=== PATIENT | male | born 1950 | race Caucasian/White ===

== ENCOUNTER 2016-11-01 07:24 | Day surgery (SDC) | payer OTHER ==
[~2016-11-01] VITALS: Ht 170.2 cm; Wt 81.6 kg
[~2016-11-01 07:24] MED LIST: ASPIR 8181 M1 PO; FLONASE16 G1 BOTH NARES; Halfprin PO; LOW DOSE ASPIRI81 M2 PO; METRO CREAM 0.745 GM TP; MOBIC15 MG PO; MOBIC7.5 MG PO; MOTRIN800 MG PO; PHENERGAN-CODE120 ML PO; PRAVACHOL20 MG PO; PREDNISONE50 MG PO; PROTONIX40 MG PO
== END 2016-11-01 09:30 | disposition home or self-care (01) ==
LOC: PAIN 07:24 → SDC 08:15 → PAIN 09:30
DX: M47.896 Other spondylosis, lumbar region (principal); M54.16 Radiculopathy, lumbar region; M46.1 Sacroiliitis, not elsewhere classified; F41.1 Generalized anxiety disorder; M51.26 Other intervertebral disc displacement, lumbar region; K21.9 Gastro-esophageal reflux disease without esophagitis
CPT/HCPCS: J1030; J2250; J3010; S0020

== ENCOUNTER 2016-11-08 09:05 | Day surgery (SDC) | payer OTHER ==
[~2016-11-08] VITALS: Ht 170.2 cm; Wt 81.8 kg
== END 2016-11-08 11:45 | disposition home or self-care (01) ==
LOC: PAIN 09:05 → SDC 09:45 → PAIN 09:45
DX: M47.896 Other spondylosis, lumbar region (principal); M54.16 Radiculopathy, lumbar region; M46.1 Sacroiliitis, not elsewhere classified; F41.1 Generalized anxiety disorder; M51.26 Other intervertebral disc displacement, lumbar region; K21.9 Gastro-esophageal reflux disease without esophagitis; E78.5 Hyperlipidemia, unspecified; R03.0 Elevated blood-pressure reading, without diagnosis of hypertension
CPT/HCPCS: J1030; J2250; J3010; S0020

== ENCOUNTER 2017-01-30 06:51 | Day surgery (SDC) | payer OTHER ==
[~2017-01-30] VITALS: Ht 170.2 cm; Wt 79.4 kg
== END 2017-01-30 08:47 | disposition home or self-care (01) ==
LOC: PAIN 06:51 → SDC 07:30 → PAIN 08:47
PROC: 015B3ZZ Destruction of Lumbar Nerve, Percutaneous Approach (ICD-10-PCS; principal; 2017-01-30)
DX: M47.816 Spondylosis without myelopathy or radiculopathy, lumbar region (principal); F41.9 Anxiety disorder, unspecified; M12.88 Other specific arthropathies, not elsewhere classified, other specified site; M46.1 Sacroiliitis, not elsewhere classified; M16.10 Unilateral primary osteoarthritis, unspecified hip
CPT/HCPCS: J1030; J2250; J3010; S0020

== ENCOUNTER 2017-02-09 12:13 | Day surgery (SDC) | payer OTHER ==
[~2017-02-09] VITALS: Ht 170.2 cm; Wt 79.4 kg
[~2017-02-09 12:13] MED LIST changes: +CYANOCOBALAM1000 MCG PO
== END 2017-02-09 14:43 | disposition home or self-care (01) ==
LOC: PAIN 12:13 → SDC 13:15 → PAIN 13:15
PROC: 015B3ZZ Destruction of Lumbar Nerve, Percutaneous Approach (ICD-10-PCS; principal; 2017-02-09)
DX: M47.816 Spondylosis without myelopathy or radiculopathy, lumbar region (principal); F41.9 Anxiety disorder, unspecified; M46.1 Sacroiliitis, not elsewhere classified; M54.5 Low back pain; G89.29 Other chronic pain; K21.9 Gastro-esophageal reflux disease without esophagitis; E78.2 Mixed hyperlipidemia; Z82.0 Family history of epilepsy and other diseases of the nervous system; Z82.61 Family history of arthritis; Z81.8 Family history of other mental and behavioral disorders; Z82.49 Family history of ischemic heart disease and other diseases of the circulatory system; Z82.3 Family history of stroke; Z83.49 Family history of other endocrine, nutritional and metabolic diseases; Z83.3 Family history of diabetes mellitus
CPT/HCPCS: J1030; J2250; J3010; S0020